=== PATIENT | female | born 1965 | race Caucasian/White ===

== ENCOUNTER 2016-09-07 19:33 | Emergency (ER) | payer BC ==
[2016-09-07 20:05] VITALS: BP 133/83
--- NOTE | 2016-09-07 21:32 | ED ---
Skin Complaint - HPI Summary HPI Summary: 51 F presents with discoloration of her hand and hand swelling. She noticed some hand swelling since . She states over the past day the swelling in her hand has decreased and she notice a nontender or warm bronze discoloration of her right hand. She has no history of blood clots, nonsmoker, no recent travel, or family history of blood clots. She denies any numbness or tingling in the hand or fevers. She denies any trauma to the area or bug bites. - History of Current Complaint Chief Complaint: EDExtremityUpper Time Seen by Provider: 09/07/16 21:13 Stated Complaint: RT HAND SWELLING Pain Intensity: 3 - Allergy/Home Medications Allergies/Adverse Reactions: Allergies Allergy/AdvReac Type Severity Reaction Status Date / Time Iodinated Contrast Media Allergy Intermediate Unknown Verified 01/12/13 13:52 [CONTRAST DYE] Reaction Details Latex Allergy See Comment Verified 12/07/13 23:25 PMH/Surg Hx/FS Hx/Imm Hx Endocrine/Hematology History: Denies: Hx Diabetes Respiratory History: Reports: Hx Asthma GI History: Denies: Other GI Disorders History: Denies: Other Problems/Disorders - Surgical History Surgery Procedure, Year, and Place: HYSTERECTOMY 2002. x2 - Immunization History Date of Tetanus Vaccine: 04/2012 Date of Influenza Vaccine: 07/2012 Infectious Disease History: No Infectious Disease History: Denies: Traveled Outside the [place] in Last 30 Days - Family History Known Family History: Negative: Cardiac Disease - Social History Alcohol Use: None Substance Use Type: Reports: None Hx Tobacco Use: No Smoking Status (MU): Never Smoked Tobacco Review of Systems Negative: Fever Negative: Chest Pain Negative: Shortness Of Breath Positive: Other - discolorization of right hand between 3-4 digit All Other Systems Reviewed And Are Negative: Yes Physical Exam Triage Information Reviewed: Yes Vital Signs On Initial Exam: Initial Vitals Temp Pulse Resp BP Pulse Ox 98.2 F 78 18 133/83 98 09/07/16 20:00 09/07/16 20:00 09/07/16 20:00 09/07/16 20:00 09/07/16 20:00 Vital Signs Reviewed: Yes Appearance: Positive: Well-Appearing Skin: Positive: Other - bronze discolorization between 3-4th webspace of right hand, nontender, no erthyema, or creptius noted, nontender, nonblanching Head/Face: Positive: Normal Head/Face Inspection Eyes: Positive: Normal, Conjunctiva Clear ENT: Positive: Normal ENT inspection, Pharynx normal, TMs normal Respiratory/Lung Sounds: Positive: Clear to Auscultation, Breath Sounds Present Cardiovascular: Positive: Normal, RRR Musculoskeletal: Positive: Strength/ROM Intact - full ROM of fingers and hand, Other - no swelling noted on hands, good pulses, capillary refill <2secs all fingers, sensation grossly intact Diagnostics - Vital Signs Vital Signs Temp Pulse Resp BP Pulse Ox 09/07/16 20:00 98.2 F 78 18 133/83 98 - Laboratory Lab Statement: Any lab studies that have been ordered have been reviewed, and results considered in the medical decision making process. Course/Dx - Course Course Of Treatment: 51 F presents with hand swelling since that has resolved and bronze discolorization noted on skin, nonblanching and nontender, good pulses and capillary refill, considered DVT but due to no risk factors and location unlikely, considered cellulitis but area is not warm or tender to touch , explained if spreads to come back to treat for cellultiis, considered necrotizing fascitis due to bronze skin but no tenderness, area has not spread in 24 hours unlikely, considered arterial occulsion but due to good capillary refill and normal apperance of fingers unlikely, appears like ecchymosis but no history of trauma, could be superficial plebitis and will treat as such, patient agrees to return if notice any vascular change or if area spreads, patient agrees with plan - Differential Diagnoses - Skin Complaint Differential Diagnoses: Cellulitis, Contact Dermatitis, Other - superficial plebitis, dvt, contusion - Diagnoses Provider Diagnoses: Discoloration of skin of hand Discharge - Discharge Plan Condition: Good Disposition: HOME Referrals: Patrice Jarquin MD [Primary Care Provider] - Additional Instructions: Continue ASA daily Apply ice/heat to area and message area Follow up with primary within 5 days Return to ED if develop any spreading redness, fever, change in color in fingers , shortness of breath, or any new or worsening symptoms
== END 2016-09-07 21:39 | disposition home or self-care (01) ==
LOC: ED 19:33
DX: L81.9 Disorder of pigmentation, unspecified (principal); R60.0 Localized edema
CPT/HCPCS: 99282

== ENCOUNTER 2016-10-14 10:55 | Emergency (ER) | payer BC ==
[2016-10-14 11:31] VITALS: BP 113/77
--- NOTE | 2016-10-14 12:19 | UC ---
Upper Extremity HPI - HPI Summary HPI Summary: 51 year old female presents complaining of right hand swelling which extends into the lateral wrist. Patient experiences swelling in her PCP joints bilaterally, which worsens at night. Pain located in the fourth and fifth right metacarpals with wrist flexion and to deep palpation. Patient denies any other pain, no erythema or warmth to the hand, denies numbness and tingling. Patient fell on the hand two months ago, this was about the time she noticed swelling in the hand. Familial maternal hx of RA. - History of Current Complaint Chief Complaint: UCUpperExtremity Stated Complaint: WRIST PAIN Time Seen by Provider: 10/14/16 11:43 Hx Obtained From: Patient Hx Last Menstrual Period: HYSTERECTOMY 2002 ?: No Onset/Duration: Gradual Onset - Patient states she noticed gradual swelling in the right hand over the past two months Aggravating Factor(s): Flexion Alleviating Factor(s): Nothing Associated Signs And Symptoms: Positive: Swelling. Negative: Redness, Bruising , Fever, Weakness, Numbness/Tingling - Risk Factors Non-Orthopedic Risk Factor: Negative DVT Risk Factors: Negative Septic Arthritis Risk Factor: Negative Compartment Syndrome Risk Factors: Pain - Allergies/Home Medications Allergies/Adverse Reactions: Allergies Allergy/AdvReac Type Severity Reaction Status Date / Time Iodinated Contrast Media Allergy Intermediate Unknown Verified 01/12/13 13:52 [CONTRAST DYE] Reaction Details Latex Allergy See Comment Verified 12/07/13 23:25 PMH/Surg Hx/FS Hx/Imm Hx Endocrine History Of: Reports: Thyroid Disease - Hypothyroidism Denies: Diabetes Cardiovascular History Of: Denies: Cardiac Disorders, Hypertension, Pacemaker/ICD, Myocardial Infarction , Congestive Heart Failure, Atrial Fibrillation, Deep Vein Thrombosis, Bleeding Disorders Respiratory History Of: Reports: Asthma Cancer History Of: Denies: Breast Cancer - Surgical History Surgical History: Yes Surgery Procedure, Year, and Place: HYSTERECTOMY 2002. x2 - Family History Known Family History: Positive: Cardiac Disease - Father: Heart disease MVP" Mother, Diabetes - Mother and sister, Other - Hypothyroidism: mother RA: Mother - Social History Occupation: Unemployed Lives: With Family Alcohol Use: None Substance Use Type: None Smoking Status (MU): Never Smoked Tobacco Have You Smoked in the Last Year: No Review of Systems Constitutional: Negative Skin: Negative Eyes: Negative ENT: Negative Respiratory: Negative Cardiovascular: Negative Motor: Other - Pain with right sided wrist flexion Neurovascular: Negative Musculoskeletal: Edema - Right hand Neurological: Negative Psychological: Negative All Other Systems Reviewed And Are Negative: Yes Physical Exam Triage Information Reviewed: Yes Appearance: Well-Appearing, No Pain Distress Vital Signs: Initial Vital Signs Temp 99.2 F 10/14/16 11:27 Pulse 84 10/14/16 11:27 Resp 16 10/14/16 11:27 BP 113/77 10/14/16 11:27 Pulse Ox 96 10/14/16 11:27 Vital Signs Reviewed: Yes Eye Exam: Normal Eyes: Positive: Conjunctiva Clear ENT Exam: Normal ENT: Positive: Normal ENT inspection, Hearing grossly normal, Pharynx normal, TMs normal Dental Exam: Normal Neck: Positive: Supple, Nontender, No Lymphadenopathy, Other: - Thyromegaly Respiratory: Positive: Chest non-tender, Lungs clear, Normal breath sounds, No respiratory distress Cardiovascular: Positive: RRR, Pulses Normal, Brisk Capillary Refill, Murmur:Sys :Grade _?_/ - Systolic murmur Abdomen Description: Positive: Nontender, No Organomegaly, Soft Musculoskeletal: Positive: Strength Intact, ROM Intact, Edema @ - Right hand, right lateral wrist extenging partially up the forearm Neurological: Positive: Alert, Muscle Tone Normal Psychological Exam: Normal Skin: Positive: Other - Edema right hand Upper Extremity Course/Dx - Differential Dx/Diagnosis Provider Diagnoses: Arthritis right hand. Right hand edema Discharge - Discharge Plan Condition: Stable Disposition: HOME Patient Education Materials: Arthritis (ED) Referrals: Patrice Jarquin MD [Primary Care Provider] - As Soon As Possible Additional Instructions: Keep your appointment with your PCP tomorrow morning. As discussed, bring up rheumatoid arthritis blood work up, as well as possible rheumatology or orthopedist referral.
--- NOTE | 2016-10-14 13:00 | RAD ---
Indication: Swelling and wrist pain. 2 views of the right hand demonstrates no fracture. There may be some mild joint space narrowing at the proximal and distal interphalangeal joints of the second through fifth digits. No fracture is noted. IMPRESSION: No fracture of the hand is noted. There may BE early degenerative changes of the proximal and distal interphalangeal joints of the second through fifth digits.
== END 2016-10-14 12:59 | disposition home or self-care (01) ==
LOC: UCEAST 10:55
DX: M19.041 Primary osteoarthritis, right hand (principal); R60.0 Localized edema
CPT/HCPCS: 99211; G0463

== ENCOUNTER 2017-08-26 06:29 | Day surgery (SDC) | payer BC ==
--- NOTE | 2017-08-19 18:19 | HP ---
PREOPERATIVE HISTORY AND PHYSICAL: DATE OF SURGERY/ADMISSION: 08/26/17 ATTENDING SURGEON: Meg Adorno MD * (DICTATED BY SERGEY HEBERT) PROCEDURE: Left wrist carpal tunnel release. DATE OF OFFICE VISIT/ENCOUNTER: 08/17/17 CHIEF COMPLAINT: Numbness and tingling left hand. HISTORY OF PRESENT ILLNESS: This is a 52-year-old female who complains of numbness and tingling in the right hand that has been ongoing for some time now. She occasionally has had symptoms that awakened her at night and is also bothered by them during the day with various activities. She in the past had a right carpal tunnel release and has done quite well with that. She is now interested in pursuing a left carpal tunnel release. She has recently had new onset chest pain and heart palpitations. She is being followed by Dr. Dodd and will receive clearance from him prior to proceeding with surgery. PAST MEDICAL HISTORY: 1. Asthma. 2. Hypothyroidism. 3. Heart palpitations. PAST SURGICAL HISTORY: 1. Right carpal tunnel release. 2. . 3. Beacon teeth extraction. 4. Hysterectomy. MEDICATIONS: 1. Advair Diskus 250/50 micrograms per dose 1 puff twice a day p.r.n. 2. Aspirin low dose 81 mg 1 tab daily. 3. Flonase allergy relief 50 microgram/ACT 1 spray each nostril daily. 4. Levoxyl 100 micrograms daily. 5. once a day. 6. Ventolin HFA inhaler. 7. Zaditor 0.025% both eyes daily. 8. Zyrtec allergy 10 mg daily. ALLERGIES: No known drug allergies. The patient is allergic to LATEX and WHEAT. FAMILY MEDICAL HISTORY: Diabetes and heart disease. 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 She is a former smoker. She quit in 1995. Prior to that, she was smoking approximately a half pack per day. She denies recreational drug use and does not drink alcohol. REVIEW OF SYSTEMS: General: Negative for fevers, chills, or night sweats. None known anesthesia problems. HEENT: Negative for headache, lightheadedness , or syncopal episodes. Integumentary: Negative for abrasions, lesions, or open wounds. Cardiothoracic: Negative for hypertension, positive for palpitations. Pulmonary: Positive for asthma and shortness of breath with exertion related to that. Negative for chronic cough or COPD. GI: Negative for nausea, vomiting, diarrhea, constipation, or GERD. : Negative for nocturia, urinary frequency, urgency, history of UTIs, or kidney problems. Musculoskeletal: Positive for current complaint. Negative for chronic or intermittent back pain or history of fractures. Neurologic: Positive for numbness and tingling in left hand. Negative for history of seizure, stroke, or epilepsy. Endocrine: Negative for diabetes or thyroid issues. Hematologic : Negative for easy bruising, anemia, excessive bleeding or history of DVT. Infectious Disease: Negative for history of MRSA, hepatitis C, HIV. PHYSICAL EXAMINATION GENERAL: Well-developed, well-nourished 52-year-old female, in on acute distress. VITAL SIGNS: Height 5 feet 3 inches, weight 209 pounds, blood pressure 128/86, pulse rate 66. HEENT: Normocephalic, atraumatic. Pupils are equal, round, and reactive to light and accommodation. Extraocular movements are intact. Throat is clear. NECK: Supple. No palpable lymph nodes. PULMONARY: Lungs are clear to auscultation bilaterally. No wheezes, rales, or rhonchi. CARDIOVASCULAR : Regular rate and rhythm. S1, S2. No murmurs, rubs, or gallops. No edema. ABDOMEN: Positive bowel sounds, soft, nontender. MUSCULOSKELETAL: On exam of her left wrist/hand, there is no visible thenar wasting, but there is slight weakness with thumb abduction on the left; otherwise, she has good motion in her fingers and wrists. She has a mildly positive median nerve compression test. Negative Tinel's. Sensation is intact to light touch throughout the hand. NEUROLOGIC: Alert and oriented x3. Cranial nerves II through XII are intact. Peripheral vascular, 2+ radial and ulnar pulses. Negative Sukh test. IMPRESSION: Left carpal tunnel syndrome. PLAN: The patient is scheduled to undergo a left wrist carpal tunnel release with Dr. Adorno on 08/26/17. She will return to the office 10 days after surgery for followup and suture removal. A prescription for Ultracet was e- scribed to the patient's pharmacy for postoperative pain management. She will receive clearance for surgery by Dr. Dodd prior to proceeding with surgery. SERGEY HEBERT [id number]/[facility] #: [id number] [facility]ENTERYovanny
[~2017-08-26 06:29] MED LIST: Buffered Lidocaine 0.9% SYRIN* 5 ML/SYR SYRINGE INTRADERM ONE; Ibuprofen TAB* 400 MG PO ONE
[2017-08-26] MEDS ORDERED: Ibuprofen TAB* 400 MG ONE (06:32)
[2017-08-26] MEDS ORDERED: Lidocaine 1% INJ* 10 MG/ML 30 ML SDV ONE (07:19)
[2017-08-26] MEDS ORDERED: fentaNYL* 50 MCG/ML 2 ML VIAL (100 MCG VIAL) ONE (07:40)
[2017-08-26] MEDS ORDERED: Midazolam* 1 MG/ML 2 ML VIAL (2 MG) ONE (07:40)
[2017-08-26] MEDS ORDERED: Propofol* 10 MG/ML 20 ML BTL IV PUSH ONE (07:47)
[2017-08-26 08:22] VITALS: BP 119/75
--- NOTE | 2017-08-26 23:36 | OP ---
CC: Dr. Adorno OPERATIVE REPORT: DATE OF OPERATION: 08/26/17 DATE OF : 69 SURGEON: Meg Adorno MD [facility]OSPITAL INTER[facility]IP: [facility] ANESTHESIA: Local MAC. PRE-OP DIAGNOSIS: Left carpal tunnel syndrome. POST-OP DIAGNOSIS: Left carpal tunnel syndrome. OPERATIVE PROCEDURE: Left carpal tunnel release. ESTIMATED BLOOD LOSS: Zero. TOURNIQUET TIME: About 5 minutes. INDICATION FOR PROCEDURE: Cassie is a 52-year-old female with numbness and tingling in the median ner ve distribution of her left hand. She presents for left carpal tunnel release. DESCRIPTION OF PROCEDURE: The patient was brought to the operating room and was given a sedation ane sthetic and a local infiltration of 10 cc of 1% plain lidocaine in the palm of her left hand. Skin o f her left hand and forearm was prepped and draped in the usual sterile fashion. The hand and forear m were exsanguinated and the tourniquet elevated to 250 mmHg. A longitudinal incision was made in th e palm in line with the ring finger. We dissected through the subcutaneous tissue down to the transv erse carpal ligament. The ligament was divided sharply with the knife and then more proximally with the scissors. The nerve was dissected free from the surrounding tissue and there is an area of moder ate compression at the mid portion of the ligament. The wound was irrigated and the skin edges were reapproximated with 4-0 nylon suture. The wound was dressed with Xeroform, 4x4, Webril, and an Rian w rap. The patient tolerated the procedure well and was brought to the recovery room in good condition . [id number]/[facility] #: [id number]
== END 2017-08-26 08:41 | disposition home or self-care (01) ==
LOC: OREAST 06:29
PROVIDERS: ATTEND Orthopaedic Surgery
DX: G56.02 Carpal tunnel syndrome, left upper limb (principal); J45.909 Unspecified asthma, uncomplicated; E03.9 Hypothyroidism, unspecified; Z79.82 Long term (current) use of aspirin; Z91.040 Latex allergy status; Z91.018 Allergy to other foods; Z87.891 Personal history of nicotine dependence
CPT/HCPCS: A9270-GY; J2250; J2704; J3010

== ENCOUNTER 2018-06-22 19:55 | Emergency (ER) | payer SELFPAY ==
[2018-06-22 21:01] LABS: ABS Basophils 0.1 10^3/ul (0-0.2); ABS Eosinophils 0.5 10^3/ul (0-0.6); ABS Lymphocytes 4.2 10^3/ul (1.0-4.8); ABS Monocytes 0.7 10^3/ul (0-0.8); ABS Nucleated RBC 0 10^3/ul; Eosinophil % 4.7 % (0-6); Hematocrit 41 % (35-47); Hemoglobin 13.6 g/dl (12.0-16.0); Lymphocyte % 39.7 % (25-47); Mean Corpuscular HGB Conc 34 g/dl (31-36); Mean Corpuscular Hemoglobin 30 pg (27-31); Mean Corpuscular Volume 89 fL (80-97); Mean Platelet Volume 8.5 um3 (7.4-10.4); Nucleated Red Blood Cells % 0.2; Platelet Count 274 10^3/ul (150-450); Red Blood Count 4.54 10^6/ul (4.00-5.40); Red Cell Distribution Width 13 % (10.5-15); White Blood Count 10.6 10^3/ul (3.5-10.8)
[2018-06-22 21:17] LABS: EGFR Non-African American 73.8 (>60)
--- NOTE | 2018-06-22 22:27 | RAD ---
EXAM: US Abdomen Limited, Right Upper Quadrant CLINICAL HISTORY: 52 years old, female; Pain; Abdominal pain; Generalized; Patient HX: Right upper quadrant pain with nausea; Additional info: Ruq pain TECHNIQUE: Real-time ultrasound of the right upper quadrant with image documentation. COMPARISON: No relevant prior studies available. FINDINGS: Liver: Fatty enlarged liver right lobe measured at 18.3 cm in length. No intrahepatic bile duct dilation. Gallbladder: Gallbladder appears filled with gallstones. No secondary evidence of cholecystitis. Common bile duct: Unremarkable as visualized. No stones. No dilation. Pancreas: Pancreas is largely obscured by bowel gas. Right kidney: Unremarkable. No stones. No solid mass. No hydronephrosis. IMPRESSION: 1. Gallbladder appears filled with gallstones. No secondary evidence of cholecystitis. 2. Fatty enlarged liver, right lobe measured at 18.3 cm in length. To contact [facility] with a general question: [facility] - [phone] For direct physician to physician contact: Physician Hotline - [phone] [facility] ([facility] Facility ID #[id number])
--- NOTE | 2018-06-23 00:53 | ED ---
Abdominal Pain/Female - HPI Summary HPI Summary: This pt is a 52 y/o female presenting to [facility] c/o RUQ abdominal pain intermittently for about 1 month. Pt reports her pain has been worsening over the past 24 hours. She states she has had acid reflux and diarrhea in the last few days. Pt notes she does not eat a lot of fatty foods. Denies fever, chills, nausea, vomiting, chest pain, SOB. - History of Current Complaint Chief Complaint: EDAbdPain Stated Complaint: ABD PAIN Time Seen by Provider: 06/23/18 00:41 Hx Obtained From: Patient Hx Last Menstrual Period: HYSTERECTOMY 2002 Onset/Duration: Lasting Weeks, Still Present Timing: Intermittent Episode Lasting - days Severity Currently: Moderate Pain Intensity: 5 Pain Scale Used: 0-10 Numeric Location: Discrete At: RUQ Radiates: No Aggravating Factor(s): Nothing Alleviating Factor(s): Nothing Associated Signs and Symptoms: Positive: Diarrhea, Other: - POS: acid reflux. NEG: chest pain, SOB. Negative: Fever, Chest Pain, Nausea, Vomiting Allergies/Adverse Reactions: Allergies Allergy/AdvReac Type Severity Reaction Status Date / Time latex Allergy Blisters Verified 06/22/18 20:05 PMH/Surg Hx/FS Hx/Imm Hx Endocrine/Hematology History: Reports: Hx Thyroid Disease - HYPOTHYROID, ON MEDICATION Denies: Hx Diabetes Cardiovascular History: Reports: Hx Rheumatic Fever - A CHILD IN THE EARLY 1970S Denies: Hx Congestive Heart Failure, Hx Deep Vein Thrombosis, Hx Hypertension , Hx Myocardial Infarction, Hx Pacemaker/ICD, Other Cardiovascular Problems/ Disorders Respiratory History: Reports: Hx Asthma - ON MEDICATION Denies: Other Respiratory Problems/Disorders GI History: Denies: Other GI Disorders History: Denies: Hx Renal Disease, Other Problems/Disorders Musculoskeletal History: Reports: Other Musculoskeletal History - CARPAL TUNNEL RELEASE RIGHT WRIST 2013 Sensory History: Reports: Hx Contacts or Glasses - GLASSES Denies: Hx Hearing Aid Opthamlomology History: Reports: Hx Contacts or Glasses - GLASSES Neurological History: Denies: Other Neuro Impairments/Disorders Psychiatric History: Denies: Hx Panic Disorder - Cancer History Hx Chemotherapy: No - Surgical History Surgery Procedure, Year, and Place: HYSTERECTOMY 2002 - [facility] x2 - LAST 2002 - [facility] BUNIONECTOMY LEFT FOOT 11/2016 - [facility]. RIGHT CARPAL TUNNEL RELEASE - 2013 - [facility]. WISOM TEETH EXTRACTION - [facility] Hx Anesthesia Reactions: No - Immunization History Date of Tetanus Vaccine: 04/2012 Date of Influenza Vaccine: 07/2012 Infectious Disease History: No Infectious Disease History: Denies: Traveled Outside the [place] in Last 30 Days - Family History Known Family History: Positive: Cardiac Disease - Father: Heart disease MVP" Mother, Diabetes - Mother and sister, Other - Hypothyroidism: mother RA: Mother - Social History Alcohol Use: None Substance Use Type: Reports: None Hx Tobacco Use: No Smoking Status (MU): Former Smoker Type: Cigarettes Amount Used/How Often: 14 YEARS, 1/2 ppd Length of Time of Smoking/Using Tobacco: 14 YEARS Have You Smoked in the Last Year: No Review of Systems Negative: Fever, Chills Negative: Chest Pain Negative: Shortness Of Breath Gastrointestinal: Other - acid reflux Positive: Abdominal Pain, Diarrhea. Negative: Vomiting, Nausea All Other Systems Reviewed And Are Negative: Yes Physical Exam - Summary Physical Exam Summary: VITAL SIGNS: Reviewed. GENERAL: Patient is a well-developed and nourished female who is lying comfortable in the stretcher. Patient is not in any acute respiratory distress. HEAD AND FACE: No signs of trauma. No ecchymosis, hematomas or skull depressions. No sinus tenderness. EYES: PERRLA, EOMI x 2, No injected conjunctiva, no nystagmus. EARS: Hearing grossly intact. Ear canals and tympanic membranes are within normal limits. MOUTH: Oropharynx within normal limits. NECK: Supple, trachea is midline, no adenopathy, no JVD, no carotid bruit, no c- spine tenderness, neck with full ROM. CHEST: Symmetric, no tenderness at palpation LUNGS: Clear to auscultation bilaterally. No wheezing or crackles. CVS: Regular rate and rhythm, S1 and S2 present, no murmurs or gallops appreciated. ABDOMEN: Soft, non-tender. No signs of distention. No rebound no guarding, and no masses palpated. Bowel sounds are normal. EXTREMITIES: FROM in all major joints, no edema, no cyanosis or clubbing. NEURO: Alert and oriented x 3. No acute neurological deficits. Speech is normal and follows commands. SKIN: Dry and warm Triage Information Reviewed: Yes Vital Signs On Initial Exam: Initial Vitals Temp Pulse Resp BP Pulse Ox 97.6 F 72 16 135/77 99 06/22/18 20:02 06/22/18 20:02 06/22/18 20:02 06/22/18 20:02 06/22/18 20:02 Vital Signs Reviewed: Yes Diagnostics - Vital Signs Vital Signs Temp Pulse Resp BP Pulse Ox 06/22/18 22:04 98.4 F 88 16 139/76 100 06/22/18 20:02 97.6 F 72 16 135/77 99 - Laboratory Lab Results: Lab Results 06/22/18 06/22/18 Range/Units 20:52 20:52 WBC 10.6 (3.5-10.8) 10^3/ul RBC 4.54 (4.00-5.40) 10^6/ul Hgb 13.6 (12.0-16.0) g/dl Hct 41 (35-47) % MCV 89 (80-97) fL MCH 30 (27-31) pg MCHC 34 (31-36) g/dl RDW 13 (10.5-15) % Plt Count 274 (150-450) 10^3/ul MPV 8.5 (7.4-10.4) um3 Neut % (Auto) 47.4 (38-83) % Lymph % (Auto) 39.7 (25-47) % [place] % (Auto) 7.1 H (0-7) % Eos % (Auto) 4.7 (0-6) % Baso % (Auto) 1.1 (0-2) % Absolute Neuts (auto) 5.0 (1.5-7.7) 10^3/ul Absolute Lymphs (auto) 4.2 (1.0-4.8) 10^3/ul Absolute Monos (auto) 0.7 (0-0.8) 10^3/ul Absolute Eos (auto) 0.5 (0-0.6) 10^3/ul Absolute Basos (auto) 0.1 (0-0.2) 10^3/ul Absolute Nucleated RBC 0 10^3/ul Nucleated RBC % 0.2 Sodium 141 (135-145) mmol/L Potassium 3.7 (3.5-5.0) mmol/L Chloride 105 (101-111) mmol/L Carbon Dioxide 29 (22-32) mmol/L Anion Gap 7 (2-11) mmol/L BUN 14 (6-24) mg/dL Creatinine 0.82 (0.51-0.95) mg/dL Est GFR ( Amer) 89.3 (>60) Est GFR (Non-Af Amer) 73.8 (>60) BUN/Creatinine Ratio 17.1 (8-20) Glucose 132 H (70-100) mg/dL Calcium 9.5 (8.6-10.3) mg/dL Total Bilirubin 0.30 (0.2-1.0) mg/dL AST 21 (13-39) U/L ALT 31 (7-52) U/L Alkaline Phosphatase 70 (34-104) U/L Total Protein 6.9 (6.4-8.9) g/dL Albumin 4.3 (3.2-5.2) g/dL Globulin 2.6 (2-4) g/dL Albumin/Globulin Ratio 1.7 (1-3) Lipase 16 (11.0-82.0) U/L Result Diagrams: 06/22/18 20:52 06/22/18 20:52 Lab Statement: Any lab studies that have been ordered have been reviewed, and results considered in the medical decision making process. - Ultrasound No standard instances Ultrasound Interpretation: Positive (See Comments) - Gallbladder US IMPRESSION: 1. Gallbladder appears filled with gallstones. No secondary evidence of cholecystitis. 2. Fatty enlarged liver, right lobe measured at 18.[address] Ayoub has reviewed this report. Ultrasound Interpretation Completed By: Radiologist Abdominal Pain Fem Course/Dx - Course Course Of Treatment: Pt is a 52 y/o female who presents for RUQ abdominal pain intermittently for about 1 month. Pt reports her pain has been worsening over the past 24 hours. She states she has had acid reflux and diarrhea in the last few days. Pt notes she does not eat a lot of fatty foods. Denies fever, chills, nausea, vomiting, chest pain, SOB. Test results within normal limits. Gallbladder US shows 1. Gallbladder appears filled with gallstones. No secondary evidence of cholecystitis. 2. Fatty enlarged liver, right lobe measured at 18.3 cm in length. I discussed the test results with the pt and she was instructed to follow up with a surgeon tomorrow. Pt will be discharged home with follow up from surgeon. She is instructed to return to the ED for any worsening or new symptoms. - Diagnoses Provider Diagnoses: Cholelithiasis Discharge - Sign-Out/Discharge Documenting (check all that apply): Patient Departure - Discharge home - Discharge Plan Condition: Stable Disposition: HOME Patient Education Materials: Gallstones (ED) Referrals: Patrice Jarquin MD [Primary Care Provider] - Scott Hook MD [Medical Doctor] - 1 Day Additional Instructions: Please follow up with Dr. Hook, surgeon, tomorrow. RETURN TO EMERGENCY DEPARTMENT FOR ANY NEW OR WORSENING SYMPTOMS. - Attestation Statements Document Initiated by Scribe: Yes Documenting Scribe: Yumiko Jimenez Provider For Whom Scribe is Documenting (Include Credential): Joel Ayoub MD Scribe Attestation: Yumiko Tony, scribed for Joel Ayoub MD on 06/23/18 at 0151.
[2018-06-23 01:11] VITALS: BP 112/63
== END 2018-06-23 01:10 | disposition home or self-care (01) ==
LOC: ED 19:55
DX: K80.20 Calculus of gallbladder without cholecystitis without obstruction (principal); J45.909 Unspecified asthma, uncomplicated; Z87.891 Personal history of nicotine dependence; E03.9 Hypothyroidism, unspecified
CPT/HCPCS: 36415; 76705; 80053; 83690; 85025; 99282

== ENCOUNTER 2018-07-04 12:52 | Day surgery (SDC) | payer SELFPAY ==
[~2018-07-04 12:52] MED LIST changes: -Ibuprofen TAB* 400 MG PO ONE; +Sodium Citrate/Citric Acid* 15 ML UDC PO ONE
[2018-07-04] MEDS ORDERED: ceFOXitin 2 GM IVPREMIX* 2 GM/50 ML BAG ONE (12:53)
[2018-07-04] MEDS ORDERED: Sodium Citrate/Citric Acid* 15 ML UDC ONE (12:55)
[2018-07-04] MEDS ORDERED: Morphine VIAL* 10 MG/ML 1 ML VIAL ONE ×2 (13:45→13:59)
[2018-07-04] MEDS ORDERED: Bupivacaine 0.25% SDV* 30 ML ONE (13:56)
[2018-07-04] MEDS ORDERED: fentaNYL* 50 MCG/ML 2 ML VIAL (100 MCG VIAL) ONE ×2 (14:03→15:38)
[2018-07-04] MEDS ORDERED: Propofol* 10 MG/ML 20 ML BTL IV PUSH ONE (14:04)
[2018-07-04] MEDS ORDERED: Midazolam* 1 MG/ML 2 ML VIAL (2 MG) ONE (14:04)
[2018-07-04] MEDS ORDERED: Lidocaine 2% PF * 5 ML VIAL ONE (14:04)
[2018-07-04] MEDS ORDERED: Rocuronium* 10 MG/ML VIAL ONE (14:06)
[2018-07-04] MEDS ORDERED: Ondansetron INJ* 2 MG/ML VIAL IV PRN (14:32)
[2018-07-04] MEDS ORDERED: Naloxone* 0.4 MG/ML 1 ML VIAL IV PRN (14:32)
[2018-07-04] MEDS ORDERED: Ketorolac INJ* 30 MG/ML 1 ML VIAL IV PRN (14:32)
[2018-07-04] MEDS ORDERED: Glycopyrrolate IV* 0.2 MG/ML 1 ML VIAL ONE (14:56)
[2018-07-04] MEDS ORDERED: Neostigmine Methylsulfate* 1 MG/ML 10 ML VIAL (1 mg/ml) ONE (14:56)
--- NOTE | 2018-07-04 15:22 | OP ---
Operative Report - Blank - Operative Report Date of Operation: 07/04/18 Note: Brief Operative Note Preop Dx: symptomatic cholelithiasis Postop Dx: same, plus umbilical hernia Procedure: laparoscopic cholecystectomy; open repair umbilical hernia (primary) Anesthesia: GET Surgeon: Miladys Marine Electrician: SERGEY Brown Fluids: 1500 ml RL EBL: 50 ml Specimen: gallbladder Drains: none Findings: dictated
[2018-07-04] MEDS ORDERED: Ondansetron INJ* 2 MG/ML VIAL ONE (15:38)
[2018-07-04] MEDS ORDERED: Ketorolac INJ* 30 MG/ML 1 ML VIAL ONE (15:38)
[2018-07-04] MEDS: fentaNYL* 50 MCG/ML 2 ML VIAL (100 MCG VIAL) IV PRN ×2 (15:59→16:55)
[2018-07-04 17:27] VITALS: BP 140/81
--- NOTE | 2018-07-06 08:43 | OP ---
CC: Patrice Jarquin MD * DATE OF OPERATION: 07/04/18 - SDS DATE OF : 69 SURGEON: Scott Hook MD SOLUTION COORDINATOR: SERGEY French ANESTHESIA: General endotracheal. PRE-OP DIAGNOSES: Symptomatic cholelithiasis and umbilical hernia. POST-OP DIAGNOSES: Symptomatic cholelithiasis and umbilical hernia. OPERATIVE PROCEDURE: Laparoscopic cholecystectomy and open repair umbilical hernia. ESTIMATED BLOOD LOSS: 50 mL. IV FLUIDS: 1.5 L of crystalloid. SPECIMENS: Gallbladder. DRAINS: None. COMPLICATIONS: None. COUNTS: The instrument, needle, and sponge counts were correct. DESCRIPTION OF PROCEDURE: The patient was brought to the operating room and placed on table supine. Sequential compression devices were placed on both lower extremities. General anesthesia was administered. The abdomen was prepped and draped in the usual sterile fashion. She received appropriate intravenous antibiotics. A curvilinear infraumbilical incision was created due to the presence of an umbilical hernia. The umbilical stalk was dissected free from the anterior abdominal wall and umbilical hernia about 1 cm size was identified containing preperitoneal fat. This was reduced. The umbilical hernia site was slightly enlarged in the lateral direction in order to accommodate a 12 mm trocar. After placing this into the peritoneal cavity, carbon dioxide was insufflated to a pressure of 15 mmHg. Under direct visualization, three 5-mm trocars were placed, one in the subxiphoid position, two in the right upper quadrant. The gallbladder was identified. It appeared to have chronic inflammatory changes. It was grasped at the fundus and retracted superiorly and then the peritoneum investing the gallbladder was scored on either side of the infundibulum. The dissection proceeded in a combination of sharp and blunt dissection and ultimately the infundibular cystic duct junction was identified. The cystic duct was further dissected out and the cystic arteries anterior and posteriorly were identified. The cystic arteries posterior and anterior were divided after clipping as was the cystic duct. The gallbladder was then freed from attachments to the liver bed using the cautery, staying in the avascular plane. Once the gallbladder was freed, it was removed using endoscopic retrieval bag. Upon the inspection of the gallbladder bed, there appeared to be some bleeding from the fossa towards the right side and this was made hemostatic with application of clips. After assuring hemostasis and that all clips were intact, ports were removed under direct visualization and carbon dioxide was released. The umbilical hernia defect was then closed using interrupted 0 Vicryl suture. The umbilical stalk was reapproximated to the anterior abdominal with 3-0 Vicryl and the skin incisions were all closed with 4 -0 Monocryl. Steri-Strips were applied. The patient tolerated this procedure well, was extubated uneventfully and transferred to the recovery room in stable condition. [id number]/CPS #: [id number]
== END 2018-07-04 17:31 | disposition home or self-care (01) ==
LOC: OR 12:52
PROVIDERS: ATTEND Surgery
DX: K80.10 Calculus of gallbladder with chronic cholecystitis without obstruction (principal); K42.9 Umbilical hernia without obstruction or gangrene; E78.5 Hyperlipidemia, unspecified; J45.909 Unspecified asthma, uncomplicated; E03.9 Hypothyroidism, unspecified; Z68.37 Body mass index [BMI] 37.0-37.9, adult; Z87.891 Personal history of nicotine dependence
CPT/HCPCS: 88304; A9270-GY; J0694; J1885; J2250; J2270; J2405; J2704; J2710; J3010

== ENCOUNTER 2018-08-20 20:56 | Emergency (ER) | payer SELFPAY ==
--- OUTSIDE RECORDS SUMMARY | 2018-08-20 21:10 | XMS REPORT | Continuity of Care Document ---
:1965 External Reference #:[id number] Author Name BebaCharmaine shaikh Care Team Providers Name Role Phone Patrice Jarquin MD Primary Care Physician Unavailable Payers Type Date Identification Numbers Payment Provider Subscriber Expires: 2017 Policy Number: [id number] [employer] Mike Del Rio PayID: [id number] [address] [address] [place] [address] Onset: 2008 Policy Number: [id number] [facility] Nori Del Rio PayID: [id number] [address] [place] [address] Advance Directives Description No Information Available Problems Date Description Provider Status Onset: 07/18/2017 Palpitations Sanjay Dodd M.D., [facility] Active Onset: 07/18/2017 Chest pain Sanjay Dodd M.D., [facility] Active Family History Date Family Member(s) Problem(s) Comments General Diabetes General Heart Disease Father SD Mother due to age 39 () Mother Bipolar Disorder Mother Diabetes Type II Mother heart valve disorder Social History Type Date Description Comments Sex Unknown Marital Status Lives With Spouse 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 day Zyrtec / Active Capsules 10mg 1 by Unknown Allergy 0000 mouth every day Levoxyl / Active Tablets 100mcg 1 by Unknown 0000 mouth every day Flonase / Active Suspension 50mcg/Act spray 2 Unknown Allergy 0000 spray in Relief each nostril once daily Ventolin HFA / Active Aerosol 108(90Base 2 puffs Unknown 0000 ) mcg/Act by mouth four times a day as needed Advair Diskus / Active Aerosol 250-50mcg/ 1 puff by Unknown 0000 Dose mouth twice a day prn Plexus / Active once a Unknown 0000 day Zaditor / Active Solution 0.025% both eyes Unknown 0000 daily Ultracet 08/17/ Hx Tablets 37.5-325mg 15tabs 1 tab by Meg 2016 mouth Adorno, M.D. every 4-6 hours as needed pain Aspir-Low / Hx Tablets DR 81mg 1 by Unknown 0000 mouth every day Advair Diskus / Hx Unknown 0000 - 2016 Lorazepam / Hx 0.5 mg- 1 Unknown 0000 - tab bid 07/17/ prn [address] / Hx Tablets DR 500mg take 1 Unknown 0000 - tablet 07/17/ twice a 2017 day as needed for pain Immunizations Description No Information Available Vital Signs Date Vital Result Comment 08/09/2018 10:31am Heart Rate 66 /min Respiratory Rate 18 /min Body Temperature 97.7 F 07/14/2018 10:25am Heart Rate 72 /min BP Systolic Sitting 102 mmHg BP Diastolic Sitting 60 mmHg Respiratory Rate 18 /min Body Temperature 97.5 F 07/03/2018 10:36am Height 63 inches 5'3" Weight 210.00 lb Heart Rate 78 /min BP Systolic Sitting 102 mmHg BP Diastolic Sitting 66 mmHg Respiratory Rate 18 /min Body Temperature 97.7 F BMI (Body Mass Index) 37.2 kg/m2 09/08/2017 9:07am Height 63 inches 5'3" Heart Rate 58 /min BP Systolic 122 mmHg BP Diastolic 62 mmHg Respiratory Rate 19 /min Body Temperature 98.6 F Pain Level 0 08/24/2017 12:38pm Height 63 inches 5'3" Weight 213.00 lb Heart Rate 66 /min BP Systolic Sitting 128 mmHg Lue BP Diastolic Sitting 72 mmHg Lue BP Systolic Standing 122 mmHg Lue BP Diastolic Standing 74 mmHg Lue Respiratory Rate 16 /min Pain Level 0 BMI (Body Mass Index) 37.7 kg/m2 08/17/2017 8:17am Height 63 inches 5'3" Weight 209.00 lb BP Systolic 128 mmHg BP Diastolic 86 mmHg Body Temperature 96.8 F Pain Level 1 BMI (Body Mass Index) 37.0 kg/m2 07/18/2017 12:29pm Height 63 inches 5'3" Weight 212.00 lb with shoes Heart Rate 66 /min BP Systolic 122 mmHg Rue large cuff BP Diastolic 72 mmHg Rue large cuff BP Systolic Sitting 118 mmHg Lue lg cuff BP Diastolic Sitting 80 mmHg Lue lg cuff BP Systolic Standing 112 mmHg Lue large cuff BP Diastolic Standing 72 mmHg Lue large cuff Respiratory Rate 16 /min BMI (Body Mass Index) 37.6 kg/m2 05/05/2017 2:24pm Height 63 inches 5'3" Weight 213.00 lb BP Systolic 117 mmHg BP Diastolic 80 mmHg Body Temperature 98.1 F Pain Level 5 BMI (Body Mass Index) 37.7 kg/m2 04/21/2017 2:20pm Height 63 inches 5'3" Weight 213.00 lb Heart Rate 64 /min BP Systolic 130 mmHg BP Diastolic 88 mmHg Respiratory Rate 15 /min Body Temperature 98.6 F Pain Level 7 BMI (Body Mass Index) 37.7 kg/m2 01/25/2012 9:31am Height 63.50 inches 5'3.50" Weight 200.00 lb Heart Rate 73 /min BP Systolic 120 mmHg BP Diastolic 76 mmHg BMI (Body Mass Index) 34.9 kg/m2 Results Test Date Facility Test Result H/L Range Note Laboratory test 07/04/2018 [facility] Surgical SEE RESULT [address] [place] [address] [phone] 1 SEE RESULT BELOW Name: NORI DEL RIO : [address]: Scott Hook MD Acct: [id number] Unit: [id number] AGE: 52 Location: OR Re07/04/18 SEX: F Status: DEP SDC SPEC: [id number] MIKHAIL: 07/04/18- DR: Scott Hook MD REQ: [id number] RECD: 07/04/18 STATUS: SOUT _ ORDERED: LEVEL 3 FINAL DIAGNOSIS Gallbladder, cholecystectomy: -- Chronic cholecystitis. -- Cholelithiasis. PRE-OPERATIVE DIAGNOSIS Cholecystitis GROSS DESCRIPTION The specimen is received in formalin labeled, Gallbladder and Contents, and consists of an 8.6 x 2.7 by up to 2.1 cm previously disrupted gallbladder. The serosa is glistening smooth to wrinkled syed-rees. Within the lumen and the container there are multiple yellow-white intact and fragmented smooth multifaceted choleliths ranging from 0.1 cm to 1.2 cm in greatest dimension admixed with green yellow viscid bile. The mucosa is granular to reticulated to focally velvety green-brown and the wall thickness measures up to 0.2 cm. Steamfitter Apprentice sections, one cassette. Signed by and Reported on: Terri Johnson MD 07/06/18 1242 END OF REPORT DEPARTMENT OF PATHOLOGY, [address] [place] [address] Ronal Fuentes M.D. Director [facility] # [id number] Procedures Date Code Description Status 07/04/2018 28724 Laparoscopy Cholecystectomy Completed 07/04/2018 90775 Laparoscopy Cholecystectomy Completed 08/26/2017 00278 Carpal Tunnel Release Completed 08/26/2017 03067 Carpal Tunnel Release Completed 08/24/2017 22627 EKG Tracing & Interpretation Completed 08/22/2017 59207 ECHO Transthoracic, Real-Time 2D With Doppler And Color Completed Flow 08/22/2017 49831 ECHO Transthoracic, Real-Time 2D With Doppler And Color Completed Flow 08/01/2017 74373 ECHO Stress Test Incl Perf Contiuous ekg Monitoring W/Phys Completed Superv 07/26/2017 96706 Event Monitor/Phys Review/Interp. Completed 07/18/2017 16876 EKG Tracing & Interpretation Completed 10/14/2015 66911 ECHO Transthoracic, Real-Time 2D With Doppler And Color Completed Flow 01/25/2012 54863 Rad Exam; Foot Comp Completed 04/06/2011 18549 Color Flow Doppler/Interp & Reprt Completed 04/06/2011 13187 Pulse Wave/Continuous-Interp.RPT Completed 04/06/2011 47283 ECHO Transthorasic Realtime 2D W Doppler & Color Flow Hosp Completed Encounters Type Date Location Provider Dx Diagnosis Office Visit 07/03/2018 Surgical Scott Hook, K80.20 [facility], [facility] gallbladder w/o cholecystitis w/o obstruction Office Visit 08/24/2017 [facility] Sanjay Bran R07.9 Chest pain, 1:00p [facility] Dodd M.D., unspecified FACC, FASNC Office Visit 07/18/2017 [facility] Sanjay Bran R07.9 Chest pain, 1:00p [facility] D[facility] M.D., unspecified FACC, FASNC R00.2 Palpitations R06.02 Shortness of breath Office Visit 05/05/2017 2:15p [facility] Meg G56.02 Carpal tunnel [facility] syndrome, left C.M.A. upper limb Office Visit 04/21/2017 2:00p [facility]opedic Meg S63.511A Sprain of [facility] carpal joint of C.M.A. 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 724.3 Sciatica Office Visit 01/25/2012 9:15a [facility] 735.0 Hallux Valgus Of [facility] Acquired Office Visit 07/11/2008 1:45p Neurosurgery Kendrick Prather 922.31 Contusion Back [facility] M.D. Plan of Treatment Future Appointment(s):08/17/2018 10:45 am - Scott Hook MD, FACS at [facility]08/09/2018 - Jenaro Brown M.D.K42.9 Umbilical hernia without obstruction or gangreneNew Medication:Bactrim DS 800-160 mg - 1 by mouth twice a dayFollow up:7-10 days
[2018-08-20] MEDS ORDERED: Ibuprofen TAB* 400 MG PO ONE (21:23)
--- NOTE | 2018-08-20 21:37 | ED ---
Lower Extremity - HPI Summary HPI Summary: This patient is a 53 year old F presenting to [facility] accompanied by her daughter with a chief complaint of left ankle pain and swelling since 19:45. Patient reports that she was running down the side of the road when she tripped on the curb and twisted her ankle. The patient rates the pain 8/10 in severity. Symptoms aggravated by bearing weight, standing, and ambulation. Symptoms alleviated by nothing. Patient denies any other pain. - History of Current Complaint Chief Complaint: EDExtremityLower Stated Complaint: LT ANKLE INJURY Time Seen by Provider: 08/20/18 21:21 Hx Obtained From: Patient Hx Last Menstrual Period: HYSTERECTOMY 2002 Mechanism Of Injury: Twisted Onset of Pain: Immediate Onset/Duration: Still Present Severity Initially: Moderate Severity Currently: Moderate Pain Intensity: 8 Pain Scale Used: 0-10 Numeric Timing: Constant Location: Is Discrete @ - left ankle Associated Signs And Symptoms: Positive: Swelling Aggravating Factor(s): Standing, Ambulation, Weight Bearing Alleviating Factor(s): Nothing - Allergies/Home Medications Allergies/Adverse Reactions: Allergies Allergy/AdvReac Type Severity Reaction Status Date / Time latex AdvReac Mild Blisters Verified 08/20/18 21:04 PMH/Surg Hx/FS Hx/Imm Hx Endocrine/Hematology History: Reports: Hx Thyroid Disease - HYPOTHYROID, ON MEDICATION Denies: Hx Diabetes Cardiovascular History: Reports: Hx Rheumatic Fever - A CHILD IN THE EARLY S Denies: Hx Congestive Heart Failure, Hx Deep Vein Thrombosis, Hx Hypertension , Hx Myocardial Infarction, Hx Pacemaker/ICD, Other Cardiovascular Problems/ Disorders Respiratory History: Reports: Hx Asthma - ON MEDICATION Denies: Other Respiratory Problems/Disorders GI History: Denies: Other GI Disorders History: Denies: Hx Renal Disease, Other Problems/Disorders Musculoskeletal History: Reports: Other Musculoskeletal History - CARPAL TUNNEL RELEASE RIGHT WRIST 2013, left wrist 2016 Sensory History: Reports: Hx Contacts or Glasses - GLASSES Denies: Hx Hearing Aid Opthamlomology History: Reports: Hx Contacts or Glasses - GLASSES Neurological History: Denies: Other Neuro Impairments/Disorders Psychiatric History: Denies: Hx Panic Disorder - Cancer History Hx Chemotherapy: No - Surgical History Surgery Procedure, Year, and Place: HYSTERECTOMY 2002 - [facility] x[facility] - LAST 2002 - [facility] BUNIONECTOMY LEFT FOOT 11/2016 - [facility]. RIGHT CARPAL TUNN[place] [facility] [place]TRA[place] - [facility]. [place] [facility] [place] Anesthesia Reactions: No - Immunization History Date of Tetanus Vaccine: 04/2012 Date of Influenza Vaccine: 07/2012 Infectious Disease History: No Infectious Disease History: Denies: Traveled Outside the [place] in Last 30 Days - Family History Known Family History: Positive: Cardiac Disease - Father: Heart disease MVP" Mother, Diabetes - Mother and sister, Other - Hypothyroidism: mother RA: Mother - Social History Alcohol Use: None Substance Use Type: Reports: None Hx Tobacco Use: No Smoking Status (MU): Former Smoker Type: Cigarettes Amount Used/How Often: 14 YEARS, 1/2 ppd Length of Time of Smoking/Using Tobacco: 14 YEARS Have You Smoked in the Last Year: No Review of Systems Negative: Fever Negative: Epistaxis Negative: Cough Negative: Vomiting Positive: Arthralgia - left ankle pain, Edema - left ankle swelling All Other Systems Reviewed And Are Negative: Yes Physical Exam - Summary Physical Exam Summary: Appearance: Well-appearing, Well-nourished, lying in bed comfortably Skin: Warm, dry, no obvious rash Eyes: sclera anicteric, no conjunctival pallor ENT: mucous membranes moist, pharynx appears normal Neck: Supple, nontender Respiratory: Clear to auscultation, no signs of respiratory distress Cardiovascular: Normal S1, S2. No murmurs. Normal distal pulses in tibial and radial bilaterally. Abdomen: Soft, nontender, normal active bowel sounds present Musculoskeletal: left ankle swelling over lateral malleolar, tenderness over both malleoli, foot exam is normal, no tenderness in left 5th metatarsal Neurological: A&Ox3, awake and alert, mentation is normal, speech is fluent and appropriate Psychiatric: affect is normal, does not appear anxious or depressed Triage Information Reviewed: Yes Vital Signs On Initial Exam: Initial Vitals Temp Pulse Resp BP Pulse Ox 99.9 F 81 16 137/79 98 08/20/18 20:59 08/20/18 20:59 08/20/18 20:59 08/20/18 20:59 08/20/18 20:59 Vital Signs Reviewed: Yes Diagnostics - Vital Signs Vital Signs Temp Pulse Resp BP Pulse Ox 08/20/18 20:59 99.9 F 81 16 137/79 98 - Laboratory Lab Statement: Any lab studies that have been ordered have been reviewed, and results considered in the medical decision making process. - Radiology Left Ankle XR Radiology Interpretation Completed By: ED Physician Summary of Radiographic Findings: negative for fracture Lower Extremity Course/Dx - Course Course Of Treatment: This patient is a 53 year old F presenting to [facility] accompanied by her daughter with a chief complaint of left ankle pain and swelling since 19:45. Patient reports that she was running down the side of the road when she tripped on the curb and twisted her ankle. The patient rates the pain 8/10 in severity. Symptoms aggravated by bearing weight, standing, and ambulation. Symptoms alleviated by nothing. Left Ankle XR reveals negative for fracture. In the ED course the patient was given ibuprofen. Patient will be discharged home with follow up from PCP. The patient is agreeable with this plan. - Diagnoses Provider Diagnoses: Ankle sprain Discharge - Sign-Out/Discharge Documenting (check all that apply): Patient Departure - Discharge Plan Condition: Stable Disposition: HOME Patient Education Materials: Ankle Sprain (ED) Referrals: Patrice Jarquin MD [Primary Care Provider] - 1 Week (if not improving) - Billing Disposition and Condition Condition: STABLE Disposition: Home - Attestation Statements Document Initiated by Scribe: Yes Documenting Scribe: Terri Bhandari Provider For Whom Karla is Documenting (Include Credential): Marques Lauren MD Scribguy Attestation: Terri Tony, kourtneyed for Marques Lauren MD on 08/21/18 at 0214. Scribe Documentation Reviewed: Yes Provider Attestation: The documentation as recorded by the Terri duncan accurately reflects the service I personally performed and the decisions made by Marques stokes MD Status of Scribe Document: Viewed
[2018-08-20 22:05] VITALS: BP 128/72
== END 2018-08-20 22:03 | disposition home or self-care (01) ==
LOC: ED 20:56
DX: S93.402A Sprain of unspecified ligament of left ankle, initial encounter (principal); M25.572 Pain in left ankle and joints of left foot; Z87.891 Personal history of nicotine dependence; X50.9XXA Other and unspecified overexertion or strenuous movements or postures, initial encounter; Y93.02 Activity, running; Y92.480 Sidewalk as the place of occurrence of the external cause
CPT/HCPCS: 99282; A9270-GY

== ENCOUNTER 2019-01-16 18:19 | Emergency (ER) | payer SELFPAY ==
--- NOTE | 2019-01-16 19:17 | ED ---
Abdominal Pain/Female - HPI Summary HPI Summary: Patient is a 53 y/o F presenting to ED with complaints of RUQ pain. She notes that she had a cholecystectomy this past fall in 2018 and states that present pain feels similar to the pain she experienced with her gallbladder issues. She states that she appeared to have an infection after the surgery, was placed on Bactrim, and patient states that she had been "doing well" since the surgery until a week ago, when pain onset. She had contacted her PCP, who advised her to come to ED. Pain is described as an ache/soreness and has been constant. Pain radiates to her upper back. Pain is aggravated by exertion, movements. Deep breaths and food are tolerable. Nausea and bloating are endorsed, she notes that she has not eaten since around 1030. No abnormal bowel movements reported. Urinary Sx are denied. Chest pain is denied. PMHx of thyroid disease , rheumatic fever, asthma. PSHx of cholecystectomy, bunionectomy, , hysterectomy, carpal tunnel surgery. FMHx of cardiac disease, diabetes, liver cysts. Patient is a former smoker, alcohol and substance usage are denied. 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 On triage, pain is rated 6/10, nothing is noted to aggravate/alleviate Sx. Home medications and allergies are reviewed - History of Current Complaint Chief Complaint: EDAbdPain Stated Complaint: ABD/BACK PAIN, SENT BY PER PT Time Seen by Provider: 01/16/19 19:02 Hx Obtained From: Patient Hx Last Menstrual Period: HYSTERECTOMY 2002 Onset/Duration: Lasting Weeks - one week, Still Present Timing: Weeks - one week Severity Currently: Moderate - 6/10 Pain Intensity: 6 Pain Scale Used: 0-10 Numeric Location: Discrete At: RUQ Radiates: Yes Radiates to: Back - upper Character: Other: - ACHING/SORENESS Aggravating Factor(s): Movement, Other: - EXERTION Alleviating Factor(s): Nothing Associated Signs and Symptoms: Positive: Decreased Appetite, Nausea, Other: - POSITIVE - BLOATING; NEGATIVE - ABNORMAL BOWEL MOVEMENTS. Negative: Chest Pain , Urinary Symptoms Allergies/Adverse Reactions: Allergies Allergy/AdvReac Type Severity Reaction Status Date / Time latex AdvReac Mild Blisters Verified 01/16/19 18:32 PMH/Surg Hx/FS Hx/Imm Hx Endocrine/Hematology History: Reports: Hx Thyroid Disease - HYPOTHYROID, ON MEDICATION Denies: Hx Diabetes Cardiovascular History: Reports: Hx Rheumatic Fever - A CHILD IN THE EARLY Denies: Hx Congestive Heart Failure, Hx Deep Vein Thrombosis, Hx Hypertension , Hx Myocardial Infarction, Hx Pacemaker/ICD, Other Cardiovascular Problems/ Disorders Respiratory History: Reports: Hx Asthma - ON MEDICATION Denies: Other Respiratory Problems/Disorders GI History: Denies: Other GI Disorders History: Denies: Hx Renal Disease, Other Problems/Disorders Musculoskeletal History: Reports: Other Musculoskeletal History - CARPAL TUNNEL RELEASE RIGHT WRIST 2013, left wrist 2016 Sensory History: Reports: Hx Contacts or Glasses - GLASSES Denies: Hx Hearing Aid Opthamlomology History: Reports: Hx Contacts or Glasses - GLASSES Neurological History: Denies: Other Neuro Impairments/Disorders Psychiatric History: Denies: Hx Panic Disorder - Cancer History Hx Chemotherapy: No - Surgical History Surgery Procedure, Year, and Place: HYSTERECTOMY 2002 - [facility] x2 - LAST 2002 - [facility]. [place]OM[place] LEFT FOOT 11[place]2016 - [facility] [place]. RIGHT CARPAL TUNNEL RELEASE - 2013 - [facility] [place]. W[facility]OM TEETH EXTRACTION - [facility]. left carpal tunnel 2015, [facility] Hx Anesthesia Reactions: No - Immunization History Date of Tetanus Vaccine: 04/2012 Date of Influenza Vaccine: 07/2012 Infectious Disease History: No Infectious Disease History: Denies: Traveled Outside the [place] in Last 30 Days - Family History Known Family History: Positive: Cardiac Disease - Father: Heart disease MVP" Mother, Diabetes - Mother and sister, Other - Hypothyroidism: mother RA: Mother ; FMHx of liver cysts. - Social History Alcohol Use: None Substance Use Type: Reports: None Hx Tobacco Use: No Smoking Status (MU): Former Smoker Type: Cigarettes Amount Used/How Often: 14 YEARS, 1/2 ppd Length of Time of Smoking/Using Tobacco: 14 YEARS Have You Smoked in the Last Year: No Review of Systems Negative: Chest Pain Gastrointestinal: Other - POSITIVE - "BLOATING", DECREASED APPETITE Positive: Abdominal Pain, Nausea Genitourinary: Other - NEGATIVE - ABNORMAL BOWEL MOVEMENTS Positive: no symptoms reported - NO URINARY SYMPTOMS ARE REPORTED All Other Systems Reviewed And Are Negative: Yes Physical Exam - Summary Physical Exam Summary: Appearance: Well-appearing, Well-nourished, lying in bed comfortably Skin: Warm, dry, no obvious rash Eyes: sclera anicteric, no conjunctival pallor ENT: mucous membranes moist, pharynx appears normal Neck: Supple, nontender Respiratory: Clear to auscultation, no signs of respiratory distress Cardiovascular: Normal S1, S2. No murmurs. Normal distal pulses in tibial and radial bilaterally. Abdomen: Soft, minimal RUQ tenderness, normal active bowel sounds present Musculoskeletal: Normal, Strength/ROM Intact Neurological: A&Ox3, awake and alert, mentation is normal, speech is fluent and appropriate Psychiatric: affect is normal, does not appear anxious or depressed Triage Information Reviewed: Yes Vital Signs On Initial Exam: Initial Vitals Temp Pulse Resp BP Pulse Ox 97.6 F 84 16 133/82 98 01/16/19 18:28 01/16/19 18:28 01/16/19 18:28 01/16/19 18:28 01/16/19 18:28 Vital Signs Reviewed: Yes Diagnostics - Vital Signs Vital Signs Temp Pulse Resp BP Pulse Ox 01/16/19 18:28 97.6 F 84 16 133/82 98 - Laboratory Result Diagrams: 01/16/19 19:20 01/16/19 19:20 Lab Statement: Any lab studies that have been ordered have been reviewed, and results considered in the medical decision making process. - Ultrasound No standard instances Ultrasound Interpretation Completed By: Radiologist Summary of Ultrasound Findings: GALLBLADDER US IMPRESSION: No sonographic findings to correlate with patient's symptomatology. THIS REPORT WAS REVIEWED BY DR. KWON. Re-Evaluation - Re-Evaluation First Eval Re-Evaluation Time: 21:31 Comment: Results of labs and US were discussed, patient will be discharged to home and follow up with her surgeon, GI. She is agreeable with this. Abdominal Pain Fem Course/Dx - Course Course Of Treatment: Patient is a 53 y/o F presenting to ED with complaints of RUQ pain. She notes that she had a cholecystectomy this past fall in 2018 and states that present pain feels similar to the pain she experienced with her gallbladder issues. She states that she appeared to have an infection after the surgery, was placed on Bactrim, and patient states that she had been "doing well " since the surgery until a week ago, when pain onset. Pain is described as an ache/soreness and has been constant. Pain radiates to her upper back. Pain is aggravated by exertion, movements. Deep breaths and food are tolerable. Nausea and bloating are endorsed, she notes that she has not eaten since around 1030. No abnormal bowel movements reported. Urinary Sx are denied. Chest pain is denied. On physical exam, slight RUQ tenderness is noted. Labs showed glucose 104, lipase 17, ALT 36, alk phos 75. GALLBLADDER US IMPRESSION: No sonographic findings to correlate with patient's symptomatology. Results of labs and US were discussed, patient will be discharged to home and follow up with her surgeon, GI. She is agreeable with this. - Diagnoses Provider Diagnoses: RUQ abdominal pain Discharge - Sign-Out/Discharge Documenting (check all that apply): Patient Departure - discharge Patient Received Moderate/Deep Sedation with Procedure: No - Discharge Plan Condition: Stable Disposition: HOME Patient Education Materials: Acute Abdominal Pain (ED) Referrals: Vincent Lynn DO [Doctor of Osteopathy] - Scott Hook MD [Medical Doctor] - Patrice Jarquin MD [Primary Care Provider] - Additional Instructions: As your symptoms seem to be reminiscent of those you had around the time of your gall bladder surgery, I think a reasonable next step would be to make an appt with Dr. Hook to see if he thinks this could be somehow related to that surgery. If not, your doctor should see you and may want to send you to a sales designer. I have listed the iron guardrail installer sales designer if your insurance lets you make that referral directly. - Billing Disposition and Condition Condition: STABLE Disposition: Home - Attestation Statements Document Initiated by Karla: Yes Documenting Cathyibe: JARRETT PEDERSEN Provider For Whom Karla is Documenting (Include Credential): SURESH KWON MD Scribe Attestation: I, JARRETT PEDERSEN, scribed for SURESH KWON MD on 01/17/19 at 1023. Scribe Documentation Reviewed: Yes Provider Attestation: The documentation as recorded by the JARRETT duncan accurately reflects the service I personally performed and the decisions made by me, SURESH KWON MD Status of Scribe Document: Viewed
[2019-01-16 19:26] LABS: ABS Basophils 0.1 10^3/ul (0-0.2); ABS Eosinophils 0.5 10^3/ul (0-0.6); ABS Lymphocytes 4.4 10^3/ul (1.0-4.8); ABS Monocytes 0.8 10^3/ul (0-0.8); ABS Neutrophils 4.4 10^3/ul (1.5-7.7); Eosinophil % 4.7 %; Hematocrit 41 % (35-47); Hemoglobin 13.9 g/dL (12.0-16.0); Lymphocyte % 43.5 %; Mean Corpuscular HGB Conc 34 g/dL (31-36); Mean Corpuscular Hemoglobin 31 pg (27-31); Mean Corpuscular Volume 90 fL (80-97); Mean Platelet Volume 8.5 fL (7.4-10.4); Nucleated Red Blood Cells % 0.1; Platelet Count 274 10^3/uL (150-450); Red Blood Count 4.55 10^6 /uL (3.70-4.87); Red Cell Distribution Width 13 % (10.5-15); White Blood Count 10.2 10^3/uL (3.5-10.8)
[2019-01-16 19:42] LABS: ALT 36 U/L (7-52); Albumin 4.4 g/dL (3.2-5.2); Albumin/Globulin Ratio 1.7 (1-3); Alkaline Phosphatase 75 U/L (34-104); BUN/Creatinine Ratio 15.6 (8-20); Blood Urea Nitrogen 12 mg/dL (6-24); CO2 Carbon Dioxide 28 mmol/L (22-32); Calcium 9.7 mg/dL (8.6-10.3); Chloride 104 mmol/L (101-111); EGFR African American 95.6 (>60); Globulin 2.6 g/dL (2-4); Glucose 104 mg/dL (70-100); Sodium 138 mmol/L (135-145)
[2019-01-16 20:20] LABS: Anion Gap 6 mmol/L (2-11)
[2019-01-16 21:48] VITALS: BP 115/73
== END 2019-01-16 21:40 | disposition home or self-care (01) ==
LOC: ED 18:19
DX: R10.11 Right upper quadrant pain (principal); E03.9 Hypothyroidism, unspecified; J45.909 Unspecified asthma, uncomplicated; Z90.49 Acquired absence of other specified parts of digestive tract; Z91.040 Latex allergy status; Z79.899 Other long term (current) drug therapy; Z79.51 Long term (current) use of inhaled steroids; Z87.891 Personal history of nicotine dependence
CPT/HCPCS: 36415; 76705; 80053; 83690; 85025; 99282